=== PATIENT | female | born 1950 | race Caucasian/White ===

== ENCOUNTER 2018-01-16 18:59 | Inpatient (IN) | payer OTHER ==
[~2018-01-16] VITALS: Ht 160 cm; Wt 88.0 kg
[~2018-01-16 18:59] MED LIST: ACETAMINOPHEN325 M1 PO; BACTRIM DS TAB1 EACH PO; HYDROCODON-ACE1 EAC7 PO; KEFLEX500 MG PO; LISINOPRIL10 MG; LISINOPRIL20 MG PO; MORPHINE TOP; MUCINEX600 MG PO; NORCO 5-325 TA1 EACH PO; NORVASC 5 MG TAB5 MG PO; NORVASC10 MG PO; PRILOSEC 10MG C10 M1; PRILOSEC 20 MG20 MG PO; SILVADENE20 GM TOP; SYMBICORT160 MCG/4. INH
[2018-01-16 19:04] VITALS: BP 139/76
[2018-01-16] MEDS ORDERED: METFORMIN HCL500 MG PO (19:42)
[2018-01-16] MEDS ORDERED: VICTOZA0.6 MG/0.1 SUBQ (19:42)
[2018-01-16] MEDS ORDERED: LISINOPRIL-HCT1 EACH PO (19:43)
[2018-01-16] MEDS ORDERED: HYDROXYCHLOROQ200 M1 PO (19:43)
[2018-01-16] MEDS ORDERED: COLACE100 MG PO (19:44)
[2018-01-16] MEDS ORDERED: TERBINAFINE HC250 MG PO (19:44)
[2018-01-16] MEDS ORDERED: PEPCID20 MG PO (19:44)
[2018-01-16] MEDS ORDERED: [UNRECOGNIZED DRUG - OTHER] (19:45)
[2018-01-16] MEDS ORDERED: DRAMAMINE (19:45)
[2018-01-16] MEDS ORDERED: NAPROSYN500 MG PO (19:46)
[2018-01-16 19:48] LABS: ABSOLUTE NEUTROPHILS 10.1 thou/uL (1.4-8.2); EOSINOPHILS 0.6 % (0.0-3.0); HEMATOCRIT 40.6 % (37.0-47.0); HEMOGLOBIN 13.6 gm/dL (12.0-15.0); LYMPHOCYTES 20.9 % (24.0-44.0); MCH 27.8 pg (26.0-34.0); MCHC 33.4 g/dL (28.0-37.0); MCV 83.2 fL (80.0-100.0); MONOCYTES 6.3 % (1.0-8.0); PLATELET COUNT 498 thou/uL (150-400); POLYS 71.2 % (36.0-66.0); RBC 4.88 mil/uL (4.20-5.00); RDW 15.9 % (10.5-14.5); WBC 14.2 thou/uL (4.0-11.0)
[2018-01-16 19:58] LABS: CALCIUM 10.6 mg/dL (8.5-10.1); CREATININE 1.4 mg/dL (0.6-1.0); POTASSIUM 3.2 mmol/L (3.5-5.1)
[2018-01-16 20:05] LABS: ALBUMIN 4.1 g/dL (3.4-5.0); DIRECT BILIRUBIN 0.1 mg/dL (<0.1-0.3); TOTAL BILIRUBIN 0.3 mg/dL (<0.1-1.0); TOTAL PROTEIN 8.8 g/dL (6.4-8.2)
[2018-01-16 20:24] LABS: URINE BILIRUBIN NEGATIVE (Negative); URINE BLOOD NEGATIVE (Negative); URINE CLARITY CLEAR; URINE COLOR YELLOW; URINE GLUCOSE-RANDOM* NEGATIVE (Negative); URINE KETONES NEGATIVE (Negative); URINE LEUKOCYTES NEGATIVE (Negative); URINE NITRITE NEGATIVE (Negative); URINE PROTEIN (DIPSTICK) NEGATIVE (Negative); URINE SPECIFIC GRAVITY 1.015 (1.005-1.035); URINE UROBILINOGEN 0.2 E.U./dl (0.2-1.0)
[2018-01-16 21:39] VITALS: BP 122/59
[2018-01-16 22:36] VITALS: BP 138/96
[2018-01-16 22:46] VITALS: BP 126/83
[2018-01-16] MEDS ORDERED: DURAGESIC1 EAC4 TRANSDERM (23:46)
[2018-01-16] MEDS ORDERED: SINGULAIR 10 MG10 M1 PO (23:46)
[2018-01-16] MEDS ORDERED: BREO ELLIPTA 21 EACH INH (23:47)
[2018-01-16] MEDS ORDERED: PROAIR RESPICL90 MCG INH (23:52)
[2018-01-17 04:30] VITALS: BP 120/57
[2018-01-17 06:15] LABS: HEMATOCRIT 36.8 % (37.0-47.0); HEMOGLOBIN 11.8 gm/dL (12.0-15.0); MCHC 32.1 g/dL (28.0-37.0); MCV 84.3 fL (80.0-100.0); RBC 4.36 mil/uL (4.20-5.00); RDW 16.3 % (10.5-14.5); WBC 11.9 thou/uL (4.0-11.0)
[2018-01-17 06:29] LABS: CALCIUM 9.7 mg/dL (8.5-10.1); CREATININE 1.4 mg/dL (0.6-1.0)
[2018-01-17 08:19] VITALS: BP 118/61
[2018-01-17 16:58] VITALS: BP 118/54
[2018-01-17 19:46] VITALS: BP 115/71
[2018-01-18 03:01] VITALS: BP 124/65
[2018-01-18 05:27] LABS: ALBUMIN 3.3 g/dL (3.4-5.0); CREATININE 1.1 mg/dL (0.6-1.0); POTASSIUM 3.6 mmol/L (3.5-5.1); TOTAL BILIRUBIN 0.3 mg/dL (<0.1-1.0); TOTAL PROTEIN 6.7 g/dL (6.4-8.2)
[2018-01-18 20:25] VITALS: BP 135/84
[2018-01-19 03:00] VITALS: BP 136/70
[2018-01-19 08:00] VITALS: BP 126/73
[2018-01-19] MEDS ORDERED: FLAGYL 250 MG250 MG PO (10:25)
[2018-01-19 11:11] VITALS: BP 126/73
[2018-01-19 11:52] VITALS: BP 126/73
[2018-01-19 11:56] VITALS: BP 126/73
== END 2018-01-19 11:30 | disposition home or self-care (01) | DRG 682 ==
LOC: ER 18:59 → EROBS 21:27 → 4E 21:27 → ENTRNSPT 01-19 11:21 → EDTRNSPTSTS 01-19 11:24 → 4E 01-19 11:30
PROVIDERS: Emergency Medicine; Hospitalist; Nurse Practitioner Acute Care
DX: N17.9 Acute kidney failure, unspecified (principal); E43 Unspecified severe protein-calorie malnutrition; E11.22 Type 2 diabetes mellitus with diabetic chronic kidney disease; N18.3 Chronic kidney disease, stage 3 (moderate); K82.8 Other specified diseases of gallbladder; M32.9 Systemic lupus erythematosus, unspecified; E87.6 Hypokalemia; K29.70 Gastritis, unspecified, without bleeding; I12.9 Hypertensive chronic kidney disease with stage 1 through stage 4 chronic kidney disease, or unspecified chronic kidney disease; Z90.49 Acquired absence of other specified parts of digestive tract; Z90.710 Acquired absence of both cervix and uterus; Z87.11 Personal history of peptic ulcer disease; Z90.3 Acquired absence of stomach [part of]; Z83.3 Family history of diabetes mellitus; Z68.34 Body mass index [BMI] 34.0-34.9, adult; Z79.899 Other long term (current) drug therapy
CPT/HCPCS: 10084